=== PATIENT | female | born 1960 | race African-American/Black ===

== ENCOUNTER → 2016-05-25 | Outpatient (CLI) | payer MEDICARE, MEDICAID, OTHER ==
[~2016-05-25] MED LIST: AZIT500T2 PO; BENZ1TAB; DEPA500T3; PARO10TA2 PO; PNEU25IN IM; SIMV20TA PO; TRAZ100T50 PO; ZOLO25TA PO; [UNRECOGNIZED DRUG - SUPPLY]; [UNRECOGNIZED DRUG - SUPPLY]
[2016-05-25 11:59] LABS: AUTOMATED NEUTROPHIL # 3.4 TH/MM3 (1.8-7.7); BASOPHIL % 0.5 % (0.0-2.0); HEMATOCRIT 38.2 % (35.0-46.0); HEMO FLAGS DIFF FINAL; LYMPH % 26.6 % (9.0-44.0); LYMPHOCYTE # 1.4 TH/MM3 (1.0-4.8); MEAN CELL VOLUME 84.3 FL (80.0-100.0); MEAN CORPUSCULAR HEMOGLOBIN 27.6 PG (27.0-34.0); MEAN CORPUSCULAR HGB CONC 32.7 % (32.0-36.0); MONO % 8.1 % (0.0-8.0); NEUT % 64.8 % (16.0-70.0); PLATELET COUNT 140 TH/MM3 (150-450); RED BLOOD COUNT 4.53 MIL/MM3 (4.00-5.30); RED CELL DISTRIBUTION WIDTH 13.3 % (11.6-17.2); WHITE BLOOD COUNT 5.3 TH/MM3 (4.0-11.0)
[2016-05-25 12:27] LABS: ALKALINE PHOSPHATASE 119 U/L (45-117); ALT (GPT) 28 U/L (10-53); HDL CHOLESTEROL 107.2 MG/DL (40.0-60.0); LDL CHOLESTEROL 89 MG/DL (0-99); TOTAL BILIRUBIN ADULT 0.5 MG/DL (0.2-1.0)
[2016-05-25 12:28] LABS: ANION GAP 6 MEQ/L (5-15); AST (GOT) 31 U/L (15-37); BICARBONATE 26.8 MEQ/L (21.0-32.0); BLOOD UREA NITROGEN 12 MG/DL (7-18); CHLORIDE 106 MEQ/L (98-107); GLOMERULAR FILTRATION RATE 98 ML/MIN (>89); GLUCOSE,FASTING 88 MG/DL (74-99); SODIUM (NA) 139 MEQ/L (136-145)
[2016-05-25 12:29] LABS: POTASSIUM 4.2 MEQ/L (3.5-5.1)
== END ==
LOC: CLAB 11:37
PROVIDERS: ATTEND Family Medicine
DX: F20.9 Schizophrenia, unspecified (principal); F31.9 Bipolar disorder, unspecified; E78.5 Hyperlipidemia, unspecified; R94.5 Abnormal results of liver function studies; Z72.0 Tobacco use
CPT/HCPCS: 36415; 80053; 80061; 84443; 85025

== ENCOUNTER → 2016-09-29 | Outpatient (CLI) | payer MEDICARE, MEDICAID, OTHER ==
[~2016-09-29] MED LIST changes: -PNEU25IN IM
[2016-09-29 10:43] LABS: BASOPHIL % 0.4 % (0.0-2.0); EOSINOPHIL % 0.1 % (0.0-4.0); HEMO FLAGS DIFF FINAL; LYMPH % 35.4 % (9.0-44.0); LYMPHOCYTE # 1.3 TH/MM3 (1.0-4.8); MEAN CELL VOLUME 85.1 FL (80.0-100.0); MEAN CORPUSCULAR HGB CONC 32.9 % (32.0-36.0); MONO % 11.4 % (0.0-8.0); NEUT % 52.7 % (16.0-70.0); PLATELET COUNT 150 TH/MM3 (150-450); RED BLOOD COUNT 4.34 MIL/MM3 (4.00-5.30); RED CELL DISTRIBUTION WIDTH 13.8 % (11.6-17.2); WHITE BLOOD COUNT 3.8 TH/MM3 (4.0-11.0)
[2016-09-29 11:40] LABS: CHLORIDE 107 MEQ/L (98-107); GLUCOSE,FASTING 93 MG/DL (74-99); POTASSIUM 3.9 MEQ/L (3.5-5.1); SODIUM (NA) 141 MEQ/L (136-145)
[2016-09-29 12:22] LABS: ALT (GPT) 43 U/L (10-53); ANION GAP 8 MEQ/L (5-15); AST (GOT) 33 U/L (15-37); BICARBONATE 26.3 MEQ/L (21.0-32.0); BLOOD UREA NITROGEN 9 MG/DL (7-18)
[2016-09-29 12:24] LABS: ALKALINE PHOSPHATASE 129 U/L (45-117); HDL CHOLESTEROL 78.6 MG/DL (40.0-60.0); LDL CHOLESTEROL 97 MG/DL (0-99); TOTAL BILIRUBIN ADULT 0.4 MG/DL (0.2-1.0)
[2016-09-29 12:28] LABS: GLOMERULAR FILTRATION RATE 106 ML/MIN (>89)
== END ==
LOC: CLAB 10:17
PROVIDERS: ATTEND Family Medicine
DX: B19.10 Unspecified viral hepatitis B without hepatic coma (principal); R94.5 Abnormal results of liver function studies; F31.9 Bipolar disorder, unspecified; N95.1 Menopausal and female climacteric states; R74.0 Nonspecific elevation of levels of transaminase and lactic acid dehydrogenase [LDH]; E66.9 Obesity, unspecified
CPT/HCPCS: 36415; 80053; 80061; 80074; 85025

== ENCOUNTER → 2017-05-01 | Outpatient (CLI) | payer OTHER ==
[~2017-05-01] MED LIST changes: -AZIT500T2 PO; -BENZ1TAB; -ZOLO25TA PO; -[UNRECOGNIZED DRUG - SUPPLY]; -[UNRECOGNIZED DRUG - SUPPLY]
--- NOTE | 2017-05-07 11:22 | RSPPFT ---
DATE OF PROCEDURE: 05/01/17 COMMENTS: Spirometry with FVC of 2.8, FEV1 of 2.1, FEV1/FVC ratio at 76%. Slow vital capacity is 78% of predicted. TLC is 95%. Diffusion capacity is normal. Room air arterial blood gases show pH of 7.45, PCO2 of 34, PO2 of 92. IMPRESSION: 1. No evidence of airways obstruction. 2. No evidence of airways restriction. 3. Normal diffusion capacity. 4. Non-significant response to acutely inhaled bronchodilator. 5. Adequate oxygenation and alveolar ventilation.
== END ==
LOC: HRSP 12:28
PROVIDERS: ATTEND Internal Medicine Sleep Medicine
DX: R06.89 Other abnormalities of breathing (principal)
CPT/HCPCS: 36600; 82805; 94060; 94726; 94729

== ENCOUNTER 2017-09-06 01:14 | Observation (INO) | payer OTHER, MEDICAID ==
[2017-09-06] VITALS (12 sets, daily range): BP systolic 107–142; BP diastolic 58–86; PULSE 74–104; RESP 16–19; TEMP 98.1–99; O2SAT 94–99
[~2017-09-06] VITALS: Ht 175.3 cm; Wt 75.0 kg
[2017-09-06] MEDS ORDERED: IOHEXOL 350 MG/ML 10 ML VIAL (for RAD DIAG) IVCONTRAST ONE (01:15)
[2017-09-06] MEDS ORDERED: DIVA250ER PO (01:21)
[2017-09-06] MEDS ORDERED: TRAZ100T10 PO (01:21)
--- NOTE | 2017-09-06 01:26 | PD ---
HPI Chief Complaint: Fall Time Seen by Provider: 01:16 Travel History International Travel<30 days: No Contact w/Intl Traveler<30days: No Traveled to known affect area: No History of Present Illness HPI 57-year-old female brought in by ambulance from home for evaluation of fall, scalp laceration, syncopal episode. Patient reports that she was going into her kitchen, and the next thing she knew she was on the floor waking up. She is unsure how she fell to the floor. She has a large right parietal scalp laceration. She is complaining of head pain. She denies neck or back pain. No upper or lower extremity pain. No chest pain or dyspnea. No history of syncopal episodes. No known history of cardiac disease. PFSH Past Medical History Anemia: Yes Asthma: Yes Autoimmune Disease: No Bipolar Disorder: Yes Depression: Yes Cancer: No Cardiovascular Problems: No High Cholesterol: Yes Diminished Hearing: No Endocrine: No Gastrointestinal Disorders: No Genitourinary: No Musculoskeletal: No Neurologic: No Psychiatric: Yes Respiratory: Yes Schizophrenia: Yes : 6 Para: 4 Miscarriage: 2 Social History Alcohol Use: No (NONE X 2 MO) Tobacco Use: Yes (1/3 PPD . STATES SMOKES X 5 YEARS) Substance Use: Yes (NONE X 2 MONTHS, HX. OF COCAINE AND ALCOHOL IS IN [facility] INPATIENT) Allergies-Medications (Allergen,Severity, Reaction): Coded Allergies: No Known Allergies (Verified Adverse Reaction, Unknown, 09/06/17) Reported Meds & Prescriptions Reported Meds & Active Scripts Active Paroxetine (Paroxetine HCl) 10 Mg Tab 10 Mg PO DAILY Simvastatin 20 Mg Tab 20 Mg PO DAILY Reported Depakote ER (Divalproex Sodium) 250 Mg Анна 250 Mg PO DAILY Trazodone (Trazodone HCl) 100 Mg Tablet 100 Mg PO HS Review of Systems Except as stated in HPI: all other systems reviewed are Neg Physical Exam Narrative GENERAL: Well-developed, well-nourished, awake, alert, GCS 15, no acute distress. SKIN: Focused skin assessment warm/dry. Large/L-shaped laceration to the right parietal scalp of moderate depth, no active bleeding, approximately 10 cm in total length, galea intact. HEAD: Skin exam as above. Normocephalic. EYES: Pupils equal, round, 3 mm, reactive to light. EOMI. No scleral icterus. No injection or drainage. ENT: No nasal bleeding or discharge. Mucous membranes pink and moist. NECK: Trachea midline. No JVD. Rigid cervical collar in place. No midline cervical spine step-off or tenderness. CARDIOVASCULAR: Regular rate and rhythm. RESPIRATORY: No accessory muscle use. Clear to auscultation. Breath sounds equal bilaterally. GASTROINTESTINAL: Abdomen soft, non-tender, nondistended. Hepatic and splenic margins not palpable. MUSCULOSKELETAL: No obvious deformities. No clubbing. No cyanosis. No edema. No midline thoracic or lumbar spine step-off or tenderness. NEUROLOGICAL: Awake and alert. No obvious cranial nerve deficits. Motor grossly within normal limits. Normal speech. PSYCHIATRIC: Appropriate mood and affect; insight and judgment normal. Data Data Last Documented VS Vital Signs Date Time Temp Pulse Resp B/P (MAP) Pulse Ox O2 Delivery O2 Flow Rate FiO2 09/06/17 02:53 92 19 142/86 (104) 98 137/83 (101) 09/06/17 01:24 Room Air 09/06/17 01:22 98.1 Orders Orders Electrocardiogram (09/06/17:19) Ckmb (Isoenzyme) Profile (09/06/17 01:19) Complete Blood Count With Diff (09/06/17:19) Comprehensive Metabolic Panel (09/06/17:19) Prothrombin Time / Inr (Pt) (09/06/17:19) Act Partial Throm Time (Ptt) (09/06/17:19) Troponin I (09/06/17:19) Chest, Single Ap (09/06/17:19) Ecg Monitoring (09/06/17:19) Bilateral Bp Monitoring (09/06/17:19) Iv Access Insert/Monitor (09/06/17:19) Oximetry (09/06/17:19) Oxygen Administration (09/06/17:19) Sodium Chloride 0.9% Flush (Ns Flush) (09/06/17 01:30) Ct Brain W/O Iv Contrast(Rout) (09/06/17 ) Ct Cerv Spine W/O Contrast (09/06/17 ) Cefazolin 2 Gm Premix (Ancef 2 Gm Premix (09/06/17 01:30) Urinalysis - C+S If Indicated (09/06/17 01:19) Tetanus/Diphtheria Tox Adult (Tetanus/Di (09/06/17 01:30) Valproic Acid (Depakene) (09/06/17 01:29) CKMB (09/06/17 01:29) CKMB% (09/06/17 01:29) Morphine Inj (Morphine Inj) (09/06/17 02:30) Potassium Chloride (Kcl) (09/06/17 02:30) Ct Pulmonary Angiogram (09/06/17 ) Iohexol 350 Inj (Omnipaque 350 Inj) (09/06/17 01:15) Levofloxacin (Levaquin) (09/06/17 04:15) Blood Culture (09/06/17 04:03) Labs Laboratory Tests Test 09/06/17 01:29 09/06/17 02:40 Blood Urea Nitrogen 10 MG/DL Creatinine 0.77 MG/DL Random Glucose 121 MG/DL Total Protein 8.1 GM/DL Albumin 3.7 GM/DL Calcium Level 9.1 MG/DL Alkaline Phosphatase 140 U/L Aspartate Amino Transf (AST/SGOT) 74 U/L Alanine Aminotransferase (ALT/SGPT) 67 U/L Total Bilirubin 0.5 MG/DL Sodium Level 139 MEQ/L Potassium Level 3.3 MEQ/L Chloride Level 100 MEQ/L Carbon Dioxide Level 23.3 MEQ/L Anion Gap 16 MEQ/L Estimat Glomerular Filtration Rate 93 ML/MIN Total Creatine Kinase 266 U/L Creatine Kinase MB 2.6 NG/ML Creatine Kinase MB % 1.0 % Troponin I LESS THAN 0.02 NG/ML Valproic Acid (Depakene) Level 4 MCG/ML White Blood Count 4.5 TH/MM3 Red Blood Count 4.22 MIL/MM3 Hemoglobin 11.9 GM/DL Hematocrit 35.7 % Mean Corpuscular Volume 84.8 FL Mean Corpuscular Hemoglobin 28.1 PG Mean Corpuscular Hemoglobin Concent 33.2 % Red Cell Distribution Width 13.3 % Platelet Count 132 TH/MM3 Mean Platelet Volume 9.9 FL Neutrophils (%) (Auto) 58.0 % Lymphocytes (%) (Auto) 30.5 % Monocytes (%) (Auto) 10.8 % Eosinophils (%) (Auto) 0.2 % Basophils (%) (Auto) 0.5 % Neutrophils # (Auto) 2.6 TH/MM3 Lymphocytes # (Auto) 1.4 TH/MM3 Monocytes # (Auto) 0.5 TH/MM3 Eosinophils # (Auto) 0.0 TH/MM3 Basophils # (Auto) 0.0 TH/MM3 CBC Comment DIFF FINAL Differential Comment Prothrombin Time 10.7 SEC Prothromb Time International Ratio 1.1 RATIO Activated Partial Thromboplast Time 22.6 SEC MDM Medical Decision Making Medical Screen Exam Complete: Yes Emergency Medical Condition: Yes Interpretation(s) EKG: Sinus, rate 91, normal axis, normal intervals, T-wave inversions in V1 through V3 Differential Diagnosis Syncope, intracranial trauma, cervical spine injury, metabolic abnormality, Narrative Course Vital signs reviewed. CBC: WBC 4.5, hemoglobin 11.9, hematocrit 35.7, platelets 132. CMP is remarkable for potassium 3.3 which was replaced orally, AST 74, ALT 67, Cardiac enzymes are negative. Depakote level is 4. Scalp wound was copiously irrigated and repaired with gina. Patient was given 2 g of Ancef IV. Chest x-ray: Possible mild hazy parenchymal infiltrate right lung base. CT cervical spine: Facet arthrosis C3-4 on the left side otherwise unremarkable. CT head: Unremarkable study. CT pulm angiogram: CONCLUSION: 1. Lung nodules have not changed since 2017 most likely benign and there is slight left lung base infiltrate. 2. No evidence for pulmonary embolus. Patient was made aware of all findings. I will start her on Levaquin for this left base infiltrate seen on CT pulmonary angiogram. Patient denies cough or fevers. She did have a syncopal episode and sustained a pretty large scalp laceration. She has T-wave inversions on her EKG on V1 through V3. No prior comparison. Given EKG findings with history of syncope, she will be admitted for telemetry monitoring and further evaluation. Patient was made aware of all findings and plan for admission. The patient's primary care physician Dr. Vazquez Ramos was contacted and would like the patient to be admitted to the [facility] service. Case discussed with hospitalist Dr. Hayes who will admit the patient to the hospitalist service. Procedures Procedure Narrative LACERATION LOCATION: Right parietal scalp LENGTH: 8 cm NUMBER OF STITCHES/GINA: 11 gina REPAIR: The area of the laceration was prepped with Betadine and sterilely draped. The wound was copiously irrigated and explored without evidence of foreign body, tendon injury or neurovascular injury. The wound was closed using 11 gina. This was a single layer repair. A sterile dressing was applied. The patient was advised to keep the dressing clean and dry. Patient tolerated the procedure well. Diagnosis Primary Impression: Syncope Qualified Codes: R55 - Syncope and collapse Additional Impressions: Head injury Qualified Codes: S09.90XA - Unspecified injury of head, initial encounter Scalp laceration Qualified Codes: S01.01XA - Laceration without foreign body of scalp, initial encounter Pneumonia Qualified Codes: J18.1 - Lobar pneumonia, unspecified organism Admitting Information Admitting Physician Requests: Betito Bains MD September 06, 2017 01:26
[2017-09-06] MEDS ORDERED: TETANUS/DIPHTHERIA TOXOID ADULT 0.5 ML VIAL IM ONE (01:30)
[2017-09-06] MEDS ORDERED: SODIUM CHLORIDE 0.9% FLUSH 10 ML FLUSH IVF PRN (01:30)
[2017-09-06] MEDS ORDERED: ceFAZolin 2 GM PREMIX 50 ML IV ONE (01:30)
--- NOTE | 2017-09-06 02:06 | RADRPT ---
EXAM DATE: 09/06/2017 2:02 AM EDT AGE/SEX: 57 years / Female INDICATIONS: Short of breath. CLINICAL DATA: This is the patient's initial encounter. Patient reports that signs and symptoms have been present for 1 day and indicates a pain score of 0/10. MEDICAL/SURGICAL HISTORY: None. None. COMPARISON: No prior exams available for comparison. FINDINGS: Possible slight hazy parenchymal process right lung base. Heart and mediastinum are unremarkable for technique. CONCLUSION: Possible mild hazy parenchymal infiltrate right lung base. Electronically signed by: Jazmyn Burnham MD 09/06/2017 2:05 AM EDT
[2017-09-06 02:12] LABS: ALBUMIN 3.7 GM/DL (3.4-5.0); ALT (GPT) 67 U/L (10-53); AST (GOT) 74 U/L (15-37); BICARBONATE 23.3 MEQ/L (21.0-32.0); BLOOD UREA NITROGEN 10 MG/DL (7-18); CALCIUM 9.1 MG/DL (8.5-10.1); CHLORIDE 100 MEQ/L (98-107); CREATININE 0.77 MG/DL (0.50-1.00); GLOMERULAR FILTRATION RATE 93 ML/MIN (>89); GLUCOSE,RANDOM 121 MG/DL (74-106); SODIUM (NA) 139 MEQ/L (136-145)
[2017-09-06 02:16] LABS: ALKALINE PHOSPHATASE 140 U/L (45-117); TOTAL BILIRUBIN ADULT 0.5 MG/DL (0.2-1.0); TOTAL PROTEIN 8.1 GM/DL (6.4-8.2); TROPONIN I LESS THAN 0.02 NG/ML (0.02-0.05)
[2017-09-06] MEDS ORDERED: MORPHINE SULFATE 4 MG/ML INJ IV PUSH ONE (02:30)
[2017-09-06] MEDS ORDERED: POTASSIUM CHLORIDE 20 MEQ CONTROLLED RELEASE TAB PO ONE (02:30)
[2017-09-06 03:00] LABS: AUTOMATED NEUTROPHIL # 2.6 TH/MM3 (1.8-7.7); BASOPHIL % 0.5 % (0.0-2.0); EOSINOPHIL % 0.2 % (0.0-4.0); HEMATOCRIT 35.7 % (35.0-46.0); HEMOGLOBIN 11.9 GM/DL (11.6-15.3); LYMPH % 30.5 % (9.0-44.0); LYMPHOCYTE # 1.4 TH/MM3 (1.0-4.8); MEAN CELL VOLUME 84.8 FL (80.0-100.0); MEAN CORPUSCULAR HEMOGLOBIN 28.1 PG (27.0-34.0); MEAN CORPUSCULAR HGB CONC 33.2 % (32.0-36.0); MEAN PLATELET VOLUME 9.9 FL (7.0-11.0); MONO % 10.8 % (0.0-8.0); MONOCYTE # 0.5 TH/MM3 (0-0.9); PLATELET COUNT 132 TH/MM3 (150-450); RED BLOOD COUNT 4.22 MIL/MM3 (4.00-5.30); RED CELL DISTRIBUTION WIDTH 13.3 % (11.6-17.2); WHITE BLOOD COUNT 4.5 TH/MM3 (4.0-11.0)
--- NOTE | 2017-09-06 03:01 | RADRPT ---
EXAM DATE: 09/06/2017 2:33 AM EDT AGE/SEX: 57 years / Female INDICATIONS: Trauma, fall. CLINICAL DATA: This is the patient's initial encounter. Patient reports that signs and symptoms have been present for 1 day and indicates a pain score of 0/10. MEDICAL/SURGICAL HISTORY: None. None. RADIATION DOSE: 20.11 CTDI (mGy) COMPARISON: No prior exams available for comparison. TECHNIQUE: Contiguous axial images were obtained using helical multirow detector technique. The vol umetric data was post-processed with multiplanar reconstruction in oblique axial, sagittal, and coron al planes. Using automated exposure control and adjustment of the mA and/or kV according to patient s ize, radiation dose was kept as low as reasonably achievable to obtain optimal diagnostic quality turner ges. FINDINGS: No significant subluxation or soft tissue swelling is seen. No definite fracture is identified for t echnique. C2-C3: No appreciable compromise to the thecal sac, exiting nerve roots are seen. The neural foramin a are patent bilaterally. No appreciable thecal sac stenosis is seen. C3-C4: No appreciable compromise to the thecal sac, exiting nerve roots are seen. The neural foramin a are patent bilaterally. No appreciable thecal sac stenosis is seen. There is significant facet arth rosis on the left side. C4-C5: No appreciable compromise to the thecal sac, exiting nerve roots are seen. The neural foramin a are patent bilaterally. No appreciable thecal sac stenosis is seen. C5-C6: No appreciable compromise to the thecal sac, exiting nerve roots are seen. The neural foramin a are patent bilaterally. No appreciable thecal sac stenosis is seen. C6-C7: No appreciable compromise to the thecal sac, exiting nerve roots are seen. The neural foramin a are patent bilaterally. No appreciable thecal sac stenosis is seen. C7-T1: No appreciable compromise to the thecal sac, exiting nerve roots are seen. The neural foramin a are patent bilaterally. No appreciable thecal sac stenosis is seen. CONCLUSION: Facet arthrosis C3-4 on the left side and otherwise unremarkable. Electronically signed by: Jazmyn Burnham MD 09/06/2017 2:59 AM EDT
--- NOTE | 2017-09-06 03:02 | RADRPT ---
EXAM DATE: 09/06/2017 2:29 AM EDT AGE/SEX: 57 years / Female INDICATIONS: Trauma, fall. Laceration to posterior head. CLINICAL DATA: This is the patient's initial encounter. Patient reports that signs and symptoms have been present for 1 day and indicates a pain score of 10/10. MEDICAL/SURGICAL HISTORY: None. None. RADIATION DOSE: 66.34 CTDI (mGy) COMPARISON: No prior exams available for comparison. TECHNIQUE: CT of the head without contrast. Using automated exposure control and adjustment of the mA and/or kV according to patient size, radiation dose was kept as low as reasonably achievable to ob tain optimal diagnostic quality images. FINDINGS: There is no evidence for intracranial hemorrhage, mass effect, mass lesions, edema, or extr a-axial fluid collections. The visualized bony structures appear intact. The ventricles are normal size for the patient's age. There are no signs of acute infarction for technique. CONCLUSION: Unremarkable study. Electronically signed by: Jazmyn Burnham MD 09/06/2017 3:01 AM EDT
[2017-09-06 03:14] LABS: INTERNATIONAL NORMALIZED RATIO 1.1 RATIO; PROTHROMBIN TIME - PATIENT 10.7 SEC (9.8-11.6)
--- NOTE | 2017-09-06 03:58 | RADRPT ---
EXAM DATE: 09/06/2017 3:36 AM EDT AGE/SEX: 57 years / Female INDICATIONS: Syncope CLINICAL DATA: This is the patient's initial encounter. Patient reports that signs and symptoms have been present for 1 day and indicates a pain score of 0/10. MEDICAL/SURGICAL HISTORY: Asthma. . RADIATION DOSE: 10.18 CTDI (mGy) COMPARISON: No prior exams available for comparison. TECHNIQUE: Volumetric scanning was performed using a multi-row detector CT scanner during bolus infu shaina of 73 ml Omnipaque 350 (iohexol) nonionic water-soluble contrast as a cumulative dose for multi ple exams. The data was post processed with a variety of visualization algorithms including full volu me maximum intensity projection and sliding thin slab reformation. Using automated exposure control and adjustment of the mA and/or kV according to patient size, radiation dose was kept as low as reaso nably achievable to obtain optimal diagnostic quality images. FINDINGS: Approximate 8 mm groundglass nodule left upper lobe with slight left lung base atelectasis and/or infiltrate. There is also a small 4 mm nodule right lower lobe anterolateral with a separate 4 mm right lower lobe nodule posteriorly. These nodules were present on the prior CT examinations jaime g back to 2017 not significantly changed most likely benign. There is no pleural effusion. No apprec iable pathological adenopathy is seen within the mediastinum. Approximate 2.4 cm cyst is present with in the liver. There is no evidence of PE for technique. CONCLUSION: 1. Lung nodules have not changed since 2017 most likely benign and there is slight left lung base in filtrate. 2. No evidence for pulmonary embolus. Electronically signed by: Jazmyn Burnham MD 09/06/2017 3:56 AM EDT
[2017-09-06] MEDS ORDERED: LEVOFLOXACIN 500 MG TAB PO ONE (04:15)
[2017-09-06] MEDS ORDERED: SODIUM CHLORIDE 0.9% FLUSH 10 ML FLUSH IV FLUSH PRN (04:45)
[2017-09-06] MEDS ORDERED: PILL SPLITTER OTHER PRN (05:00)
[2017-09-06] MEDS: PRAVASTATIN SOD 40 MG TAB PO SCH (09:52)
[2017-09-06] MEDS: PARoxetine HCL 20 MG TAB PO SCH (09:52)
[2017-09-06] MEDS: SODIUM CHLORIDE 0.9% FLUSH 10 ML FLUSH IV FLUSH SCH ×2 (09:53→21:08)
[2017-09-06] MEDS: DIVALPROEX SODIUM E.R. 250 MG TAB PO SCH (09:53)
--- NOTE | 2017-09-06 11:11 | HHI.HP ---
cc: Vazquez Ramos MD [facility] Primary [facility] Physician Vazquez Ramos MD Admission Diagnosis Syncope, scalp laceration, pneumonia Diagnoses: (1) Syncope (2) Head injury (3) Pneumonia (4) Scalp laceration (5) Chronic schizophrenia (6) Bipolar disorder (7) Dyslipidemia Chief Complaint: Fall, syncope Travel History International Travel<30 Days: No Contact w/Intl Traveler <30 Da: No Traveled to Known Affected Are: No History of Present Illness The patient is a 57-year-old female who presented to the emergency department following a syncopal episode and fall. She sustained a laceration to her scalp , which was repaired with gina in the ER. She does not recall any symptoms prior to the fall. Does not remember having any lightheadedness or dizziness. Currently her only complaint is pain at the laceration site. No vision changes. No chest pain or dyspnea. No nausea or vomiting. She states that she did have 2 beers yesterday, but that is normal for her and she does not feel that it had any effect on her falling. Review of Systems Constitutional: DENIES: Fever, Chills, Night Sweats Eyes: DENIES: Blurred vision, Vision loss Ears, nose, mouth, throat: DENIES: Hearing loss Respiratory: DENIES: Cough, Wheezing, Sputum production, Shortness of breath Cardiovascular: COMPLAINS OF: Syncope, DENIES: Chest pain, Palpitations, Dyspnea on Exertion, Lower Extremity Edema Gastrointestinal: DENIES: Abdominal pain, Constipation, Diarrhea, Nausea, Vomiting Genitourinary: DENIES: Urinary frequency, Urinary incontinence, Urgency, Hematuria, Dysuria, Nocturia Musculoskeletal: DENIES: Joint pain, Muscle aches Integumentary: DENIES: Pruritus, Rash Hematologic/lymphatic: DENIES: Bruising Neurologic: DENIES: Headache Past Family Social History Past Medical History Asthma Bipolar disorder Depression Hyperlipidemia Schizophrenia Past Surgical History Denies Reported Medications Paroxetine (Paroxetine HCl) 10 Mg Tab 10 Mg PO DAILY Simvastatin 20 Mg Tab 20 Mg PO DAILY Depakote ER (Divalproex Sodium) 250 Mg Анна 250 Mg PO DAILY Trazodone (Trazodone HCl) 100 Mg Tablet 100 Mg PO HS Allergies: Coded Allergies: No Known Allergies (Verified Allergy, Unknown, 09/06/17) Family History Hypertension Social History She smokes 4-5 cigarettes per day. Reports drinking 2 beers per day. Denies illicit drug use. Physical Exam Vital Signs Vital Signs Date Time Temp Pulse Resp B/P (MAP) Pulse Ox O2 Delivery O2 Flow Rate FiO2 09/06/17 07:59 99.0 91 18 108/61 (77) 98 09/06/17 05:35 104 16 107/58 (74) 94 Room Air 09/06/17 02:53 92 19 142/86 (104) 98 137/83 (101) 09/06/17 01:24 98 Room Air 09/06/17 01:24 98 Room Air 09/06/17 01:22 98.1 92 18 127/68 (87) 98 Physical Exam GENERAL: Well-nourished, well-developed female in no acute distress. HEENT: Scalp laceration repaired. Pupils equal, round and reactive. Extraocular movements intact. No scleral icterus. No injection or drainage. Oropharynx is clear. Mucous membranes are moist. CARDIOVASCULAR: Regular rate and rhythm without murmurs, gallops, or rubs. RESPIRATORY: Clear to auscultation. No wheezes, rales, or rhonchi. Breathing is non-labored. GASTROINTESTINAL: Abdomen soft, non-tender, nondistended. EXTREMITIES: No lower extremity edema. No calf tenderness. PSYCH: Alert and oriented x 3. Laboratory Laboratory Tests Test 09/06/17 01:29 09/06/17 02:40 Blood Urea Nitrogen 10 Creatinine 0.77 Random Glucose 121 Total Protein 8.1 Albumin 3.7 Calcium Level 9.1 Alkaline Phosphatase 140 Aspartate Amino Transf (AST/SGOT) 74 Alanine Aminotransferase (ALT/SGPT) 67 Total Bilirubin 0.5 Sodium Level 139 Potassium Level 3.3 Chloride Level 100 Carbon Dioxide Level 23.3 Anion Gap 16 Estimat Glomerular Filtration Rate 93 Total Creatine Kinase 266 Creatine Kinase MB 2.6 Creatine Kinase MB % 1.0 Troponin I LESS THAN 0.02 Valproic Acid (Depakene) Level 4 Ethyl Alcohol Level 92 White Blood Count 4.5 Red Blood Count 4.22 Hemoglobin 11.9 Hematocrit 35.7 Mean Corpuscular Volume 84.8 Mean Corpuscular Hemoglobin 28.1 Mean Corpuscular Hemoglobin Concent 33.2 Red Cell Distribution Width 13.3 Platelet Count 132 Mean Platelet Volume 9.9 Neutrophils (%) (Auto) 58.0 Lymphocytes (%) (Auto) 30.5 Monocytes (%) (Auto) 10.8 Eosinophils (%) (Auto) 0.2 Basophils (%) (Auto) 0.5 Neutrophils # (Auto) 2.6 Lymphocytes # (Auto) 1.4 Monocytes # (Auto) 0.5 Eosinophils # (Auto) 0.0 Basophils # (Auto) 0.0 CBC Comment DIFF FINAL Differential Comment Prothrombin Time 10.7 Prothromb Time International Ratio 1.1 Activated Partial Thromboplast Time 22.6 Result Diagram: 09/06/17 0240 09/06/17 0129 Imaging Last Impressions Chest X-Ray 09/06/17 0119 Signed Impressions: CONCLUSION: Possible mild hazy parenchymal infiltrate right lung base. Head CT 09/06/17 0000 Signed Impressions: CONCLUSION: Unremarkable study. Cervical Spine CT 09/06/17 0000 Signed Impressions: CONCLUSION: Facet arthrosis C3-4 on the left side and otherwise unremarkable. CT Angiography 09/06/17 0000 Signed Impressions: CONCLUSION: 1. Lung nodules have not changed since 2017 most likely benign and there is sl ight left lung base infiltrate. 2. No evidence for pulmonary embolus. Caprini VTE Risk Assessment Caprini VTE Risk Assessment: Mod/High Risk (score >= 2) Caprini Risk Assessment Model Point Value = 1 Point Value = 2 Point Value = 3 Point Value = 5 Age 41-60 Minor surgery BMI > 25 kg/m2 Swollen legs Varicose veins or History of unexplained or recurrent spontaneous Oral contraceptives or hormone replacement Sepsis (< 1 month) Serious lung disease, including pneumonia (< 1 month) Abnormal pulmonary function Acute myocardial infarction Congestive heart failure (< 1 month) History of inflammatory bowel disease Medical patient at bed rest Age 61-74 Arthroscopic surgery Major open surgery (> 45 min) Laparoscopic surgery (> 45 min) Malignancy Confined to bed (> 72 hours) Immobilizing plaster cast Central venous access Age >= 75 History of VTE Family history of VTE Factor V Leiden Prothrombin [id number] Lupus anticoagulant Anticardiolipin antibodies Elevated serum homocysteine Heparin-induced thrombocytopenia Other congenital or acquired thrombophilia Stroke (< 1 month) Elective arthroplasty Hip, pelvis, or leg fracture Acute spinal cord injury (< 1 month) Prophylaxis Regimen Total Risk Factor Score Risk Level Prophylaxis Regimen 0-1 Low Early ambulation 2 Moderate Order ONE of the following: *Sequential Compression Device (SCD) *Heparin 5000 units SQ BID 3-4 Higher Order ONE of the following medications: *Heparin 5000 units SQ TID *Enoxaparin/Lovenox 40 mg SQ daily (WT < 150 kg, CrCl > 30 mL/min) *Enoxaparin/Lovenox 30 mg SQ daily (WT < 150 kg, CrCl > 10-29 mL/min) *Enoxaparin/Lovenox 30 mg SQ BID (WT < 150 kg, CrCl > 30 mL/min) AND/OR *Sequential Compression Device (SCD) 5 or more Highest Order ONE of the following medications: *Heparin 5000 units SQ TID (Preferred with Epidurals) *Enoxaparin/Lovenox 40 mg SQ daily (WT < 150 kg, CrCl > 30 mL/min) *Enoxaparin/Lovenox 30 mg SQ daily (WT < 150 kg, CrCl > 10-29 mL/min) *Enoxaparin/Lovenox 30 mg SQ BID (WT < 150 kg, CrCl > 30 mL/min) AND *Sequential Compression Device (SCD) Assessment and Plan Assessment and Plan 1. Syncope, fall: Uncertain etiology. Monitor on cardiac telemetry. 2D echocardiogram ordered. 2. Pneumonia: Continue antibiotics. Oxygen as needed. 3. Hyperlipidemia: Continue statin. 4. Schizophrenia, bipolar disorder, depression: Continue home medications including Paxil, Depakote, trazodone. 5. Hypokalemia: Received oral potassium in the ER. Monitor labs. 6. DVT prophylaxis: SCDs, JAKE hose. Problem Qualifiers (1) Syncope: Qualified Codes: R55 - Syncope and collapse (2) Head injury: Qualified Codes: S09.90XA - Unspecified injury of head, initial encounter (3) Pneumonia: Qualified Codes: J18.1 - Lobar pneumonia, unspecified organism (4) Scalp laceration: Qualified Codes: S01.01XA - Laceration without foreign body of scalp, initial encounter Walter Ervin MD September 06, 2017 11:11
--- NOTE | 2017-09-06 14:55 | EKG ---
Date Performed: 09/06/2017 Time Performed: 01:28:10 PTAGE: 57 years EKG: Sinus rhythm NONSPECIFIC T-WAVE ABNORMALITY Consider anteroseptal ischemia BORDERLINE ECG PREVIOUS TRACING : 05/02/2004 16.34 DOCTOR: Patrick Starks Interpretating Date/Time 09/06/2017 14:54:08
[2017-09-06] MEDS ORDERED: ACETAMINOPHEN/HYDROcodone 325 MG/7.5 MG TAB PO PRN (15:00)
[2017-09-06] MEDS ORDERED: ACETAMINOPHEN 500 MG CPLT PO PRN (15:00)
[2017-09-06] MEDS: ACETAMINOPHEN/HYDROcodone 325 MG/5 MG TAB PO PRN ×2 (15:58→22:16)
[2017-09-06] MEDS ORDERED: traZODone HCL 100 MG TAB PO SCH (21:00)
[2017-09-07] VITALS (8 sets, daily range): BP systolic 105–165; BP diastolic 69–93; PULSE 68–85; RESP 16–18; TEMP 98–98.8; O2SAT 98–100
[2017-09-07] MEDS ORDERED: LEVOFLOXACIN 750 MG PREMIX INJ 150 ML IV SCH (05:00)
[2017-09-07 05:41] LABS: AUTOMATED NEUTROPHIL # 2.6 TH/MM3 (1.8-7.7); BASOPHIL % 0.8 % (0.0-2.0); EOSINOPHIL % 0.3 % (0.0-4.0); HEMATOCRIT 35.9 % (35.0-46.0); HEMOGLOBIN 11.8 GM/DL (11.6-15.3); LYMPHOCYTE # 1.8 TH/MM3 (1.0-4.8); MEAN CELL VOLUME 85.8 FL (80.0-100.0); MEAN CORPUSCULAR HEMOGLOBIN 28.2 PG (27.0-34.0); MEAN CORPUSCULAR HGB CONC 32.9 % (32.0-36.0); MEAN PLATELET VOLUME 10.2 FL (7.0-11.0); MONO % 9.2 % (0.0-8.0); MONOCYTE # 0.4 TH/MM3 (0-0.9); NEUT % 52.7 % (16.0-70.0); PLATELET COUNT 114 TH/MM3 (150-450); RED BLOOD COUNT 4.18 MIL/MM3 (4.00-5.30); RED CELL DISTRIBUTION WIDTH 13.4 % (11.6-17.2); WHITE BLOOD COUNT 4.9 TH/MM3 (4.0-11.0)
[2017-09-07 06:11] LABS: ALT (GPT) 55 U/L (10-53)
[2017-09-07 06:13] LABS: ALKALINE PHOSPHATASE 130 U/L (45-117); TOTAL BILIRUBIN ADULT 0.7 MG/DL (0.2-1.0); TOTAL PROTEIN 7.8 GM/DL (6.4-8.2)
[2017-09-07 06:27] LABS: ALBUMIN 3.5 GM/DL (3.4-5.0); AST (GOT) 50 U/L (15-37); BICARBONATE 24.3 MEQ/L (21.0-32.0); BLOOD UREA NITROGEN 5 MG/DL (7-18); CHLORIDE 104 MEQ/L (98-107); CREATININE 0.67 MG/DL (0.50-1.00); GLOMERULAR FILTRATION RATE 109 ML/MIN (>89); GLUCOSE,RANDOM 106 MG/DL (74-106); SODIUM (NA) 139 MEQ/L (136-145)
[2017-09-07] MEDS: DIVALPROEX SODIUM E.R. 250 MG TAB PO SCH (08:27)
[2017-09-07] MEDS: SODIUM CHLORIDE 0.9% FLUSH 10 ML FLUSH IV FLUSH SCH (08:27)
[2017-09-07] MEDS: PARoxetine HCL 20 MG TAB PO SCH (08:27)
[2017-09-07] MEDS: PRAVASTATIN SOD 40 MG TAB PO SCH (08:27)
[2017-09-07] MEDS ORDERED: LEVO750T3 PO (09:51)
[2017-09-07] MEDS ORDERED: LACTCHW3 CHEW (09:51)
--- NOTE | 2017-09-07 09:52 | HHI.DCPOC ---
Discharge Care Plan Diagnosis: (1) Syncope (2) Head injury (3) Scalp laceration (4) Pneumonia Goals to Promote Your Health * To prevent worsening of your condition and complications * To maintain your health at the optimal level Directions to Meet Your Goals Take your medications as prescribed Follow your dietary instruction Follow activity as directed Keep your appointments as scheduled Take your immunizations and boosters as scheduled If your symptoms worsen call your PCP, if no PCP go to Urgent Care Center or Emergency Room Smoking is Dangerous to Your Health. Avoid second hand smoke Call the 24-hour hour crisis hotline for domestic abuse at Kaitlynn Yoder PA-C Sep 07, 2017 9:52 am
--- NOTE | 2017-09-07 10:52 | HHI.PR ---
Subjective Remarks Follow up for syncope. The patient reports feeling better today. She complains of some right parietal scalp pain at site of laceration. Denies any specific headache. Denies lightheadedness, dizziness, chest pain, palpitations, shortness of breath, or abdominal complaints. She is ambulating without difficulty. Discussed her low depakote level, patient reports compliance with depakote, discussed patient to recheck home meds and make sure nothing is , repeat level in 1 week, and f/up with PCP Dr. Ramos. Patient verbalized understanding. Objective Vitals Vital Signs Date Time Temp Pulse Resp B/P (MAP) Pulse Ox O2 Delivery O2 Flow Rate FiO2 09/07/17 08:19 98.0 81 18 122/71 (88) 100 09/07/17 08:01 79 09/07/17 04:13 98.1 85 16 105/70 (82) 98 09/07/17 04:08 79 09/07/17 00:43 16 09/07/17 00:24 98.7 74 16 123/69 (87) 98 09/07/17 00:02 84 09/06/17 20:09 74 09/06/17 19:49 98.9 74 16 121/74 (90) 99 09/06/17 16:32 88 09/06/17 16:30 98.4 86 115/66 (82) 99 09/06/17 13:21 84 09/06/17 12:25 99.0 87 18 117/72 (87) 97 I/O 09/06/17 09/06/17 09/06/17 09/07/17 09/07/17 09/07/17 07:00 15:00 23:00 07:00 15:00 23:00 Intake Total 50 ml 240 ml Balance 50 ml 240 ml Intake Oral 240 ml IV Total 50 ml # Voids 1 Result Diagram: 09/07/1752609/07/17526 Imaging Last Impressions Chest X-Ray 09/06/17 011 Signed Impressions: CONCLUSION: Possible mild hazy parenchymal infiltrate right lung base. Head CT 09/06/17 0000 Signed Impressions: CONCLUSION: Unremarkable study. Cervical Spine CT 09/06/17 0000 Signed Impressions: CONCLUSION: Facet arthrosis C3-4 on the left side and otherwise unremarkable. CT Angiography 09/06/17 0000 Signed Impressions: CONCLUSION: 1. Lung nodules have not changed since 2017 most likely benign and there is sl ight left lung base infiltrate. 2. No evidence for pulmonary embolus. Objective Remarks GENERAL: Well-nourished, well-developed pleasant middle aged female patient in [facility]. SKIN: Warm and dry. No rash. HEENT: Normocephalic. Right parietal scalp with laceration s/p repair with gina; no active bleeding. Pupils equal and round. Mucous membranes pink and moist. NECK: Supple. Trachea midline. Nontender. CARDIOVASCULAR: Regular rate and rhythm. No murmur appreciated. RESPIRATORY: No accessory muscle use. Clear to auscultation. Breath sounds equal bilaterally. GASTROINTESTINAL: Abdomen soft, non-tender, nondistended. Normoactive bowel sounds x4. MUSCULOSKELETAL: No obvious deformities. Extremities without clubbing, cyanosis , or edema. NEUROLOGICAL: Awake and alert. No obvious cranial nerve deficits. Motor grossly within normal limits. Moving all extremities spontaneously. Normal speech. PSYCHIATRIC: Appropriate mood and affect; insight and judgment normal. Medications and IVs Current Medications Medications (Trade) Dose Ordered Sig/Michel Route Start Time Stop Time Status Last Admin (NS Flush) 2 ml UNSCH PRN IV FLUSH 09/06/17 04:45 (NS Flush) 2 ml BID IV FLUSH 09/06/17 09:00 09/07/17 08:27 Levofloxacin/ Dextrose 150 ml @ 100 mls/hr Q24H IV 09/07/17 05:00 09/07/17 04:18 (Depakote Er) 250 mg DAILY PO 09/06/17 09:00 09/07/17 08:27 (Paxil) 10 mg DAILY PO 09/06/17 09:00 09/07/17 08:27 (Pravachol) 40 mg DAILY PO 09/06/17 09:00 09/07/17 08:27 (Pill Splitter) 1 ea UNSCH PRN OTHER 09/06/17 05:00 (Desyrel) 100 mg HS PO 09/06/17 21:00 09/06/17 21:08 (Tylenol) 500 mg Q6H PRN PO 09/06/17 15:00 ([place] 5-325 Mg) 1 tab Q6H PRN PO 09/06/17 15:00 09/06/17 22:16 ([place] 7.5-325 Mg) 1 tab Q6H PRN PO 09/06/17 15:00 09/07/17 10:34 A/P Problem List: (1) Syncope ICD Code: R55 - Syncope and collapse Status: Acute (2) Head injury ICD Code: S09.90XA - Unspecified injury of head, initial encounter Status: Acute (3) Pneumonia ICD Code: J18.9 - Pneumonia, unspecified organism Status: Acute (4) Scalp laceration ICD Code: S01.01XA - Laceration without foreign body of scalp, initial encounter Status: Acute (5) Chronic schizophrenia ICD Code: F20.9 - Schizophrenia, unspecified Status: Chronic (6) Bipolar disorder ICD Code: F31.9 - Bipolar disorder, unspecified Status: Chronic (7) Dyslipidemia ICD Code: E78.5 - Hyperlipidemia, unspecified Status: Chronic Assessment and Plan 57-year-old female with history of bipolar disorder, schizophrenia, depression, asthma, hyperlipidemia, presents with syncope and fall. Syncope with fall: Unclear etiology, suspect multifactorial with dehydration, pneumonia, in combination with alcohol intoxication. -EtOH level 92 upon arrival -Head CT and C-spine CT reviewed, no acute findings -CXR and CTA showed LLL infiltrate, no PE, given antibiotics as below -Monitor on telemetry, no acute arrhythmia -PT consulted, no PT needed at discharge -Check orthostatic vital signs -Given IVF hydration -Echocardiogram completed, awaiting results Scalp laceration: Acute, secondary to fall as above -Status post laceration repair with gina in the ER -Instructed patient on local wound care, okay to shower, have gina removed within 10-14 days Community-acquired pneumonia: CXR and chest CTA showing LLL infiltrate -Started on IV Levaquin, plan to discharge on p.o. Levaquin Schizophrenia/bipolar disorder/depression: Chronic -Continue patient's home medication including Paxil, Depakote, trazodone -Depakote level low, patient informed of results, reports compliance with Depakote, recommended to check her medications for expiration dates and confirm Depakote dosing, repeat level in 1 week and follow-up with PCP Dr. Ramos, patient verbalized understanding Hyperlipidemia: Chronic -Continue statin Hyperkalemia: Potassium 3.3 -Given replacement in the ED Transaminitis: LFTs mildly elevated, no GI complaints -Possibly secondary to alcohol use vs psychiatric medications -EMR reviewed, Hepatitis panel negative in 2008, 2012, 2017 -Recommend to repeat LFTs as outpatient in 1 week and follow-up with PCP Alcohol Use: with +intoxication upon arrival, Etoh level 92 -Counseled on cessation -No signs of withdrawal DVT Prophylaxis: teds/SCDs; avoid chemoprophylaxis with recent head injury Discharge Planning 1120hrs: Likely discharge later today if echocardiogram unremarkable. 1340hrs: Echocardiogram resulted, EF 50-55%. Stable for discharge. Discussed with Ruby MENJIVAR. Discharge patient to home Condition on discharge: Stable Regular Diet as tolerated Ad Kami activity Rx written: Levofloxacin 750mg daily x5days, lactinex bid x5days Follow-up with primary care physician Dr. Vazquez Ramos in 2-3 days Problem Qualifiers (1) Syncope: Qualified Codes: R55 - Syncope and collapse (2) Head injury: Qualified Codes: S09.90XA - Unspecified injury of head, initial encounter (3) Pneumonia: Qualified Codes: J18.1 - Lobar pneumonia, unspecified organism (4) Scalp laceration: Qualified Codes: S01.01XA - Laceration without foreign body of scalp, initial encounter Kaitlynn Yoder PA-C Sep 07, 2017 10:52
--- NOTE | 2017-09-07 12:02 | ECHRPT ---
Indication: syncope CONCLUSIONS Normal left ventricular size. Wall thickness is normal. The left ventricular systolic function is low normal with an estimated ejection fraction in the rang e of 50- 55%. Mitral annular calcification is present. Trace mitral valve regurgitation. BP: / HR: Rhythm: MEASUREMENTS (Male / Female) Normal Values Technical Quality: 2D ECHO LV Diastolic Diameter PLAX 4.7 cm 4.2 - 5.9 / 3.9 - 5.3 cm LV Systolic Diameter PLAX 3.8 cm IVS Diastolic Thickness 0.9 cm 0.6 - 1.0 / 0.6 - 0.9 cm LVPW Diastolic Thickness 0.6 cm 0.6 - 1.0 / 0.6 - 0.9 cm LV Relative Wall Thickness 0.3 RV Internal Dim ED PLAX 1.7 cm LA Systolic Diameter LX 3.0 cm 3.0 - 4.0 / 2.7 - 3.8 cm M-MODE Aortic Root Diameter MM 3.0 cm AV Cusp Separation MM 2.0 cm DOPPLER Mitral E Point Velocity 55.9 cm/s Mitral A Point Velocity 78.8 cm/s Mitral E to A Ratio 0.7 TR Peak Velocity 116.7 cm/s TR Peak Gradient 5.4 mmHg Right Atrial Pressure 5.0 mmHg Pulmonary Artery Systolic Pressu 10.4 mmHg Right Ventricular Systolic Press 10.4 mmHg FINDINGS LEFT VENTRICLE Normal left ventricular size. Wall thickness is normal. The left ventricular systolic function is low normal with an estimated ejection fraction in the rang e of 50- 55%. RIGHT VENTRICLE Normal right ventricular size and systolic function. LEFT ATRIUM The left atrial size is normal. RIGHT ATRIUM The right atrial size is normal. ATRIAL SEPTUM Normal atrial septal thickness without atrial level shunting by limited color doppler interrogation. AORTA The aortic root and proximal ascending aorta are normal in size on limited imaging. MITRAL VALVE Mitral annular calcification is present. Trace mitral valve regurgitation. AORTIC VALVE Trileaflet aortic valve. No aortic valve stenosis or regurgitation. TRICUSPID VALVE Structurally normal tricuspid valve. No tricuspid valve stenosis or regurgitation. PULMONARY VALVE No pulmonary valve regurgitation or stenosis. VESSELS The inferior vena cava is normal in size. PERICARDIUM No pericardial effusion. Garrett Davis MD, FACC (Electronically Signed) Final Date:07 September 2017 12:01
== END 2017-09-07 15:11 | disposition home or self-care (01) ==
LOC: NEPE 01:14 → NEDA 04:39 → NEPFCDU 07:23
PROVIDERS: ADMIT Family Medicine; ATTEND Family Medicine
DX: R55 Syncope and collapse (principal); J18.1 Lobar pneumonia, unspecified organism; F10.129 Alcohol abuse with intoxication, unspecified; S01.01XA Laceration without foreign body of scalp, initial encounter; E87.6 Hypokalemia; E87.5 Hyperkalemia; R74.0 Nonspecific elevation of levels of transaminase and lactic acid dehydrogenase [LDH]; E78.5 Hyperlipidemia, unspecified; F20.9 Schizophrenia, unspecified; F31.9 Bipolar disorder, unspecified; J45.909 Unspecified asthma, uncomplicated; M47.892 Other spondylosis, cervical region; F17.210 Nicotine dependence, cigarettes, uncomplicated; Y90.4 Blood alcohol level of 80-99 mg/100 ml; Z23 Encounter for immunization; Z79.899 Other long term (current) drug therapy; W19.XXXA Unspecified fall, initial encounter
CPT/HCPCS: 12004; 70450; 71045; 71275; 72125; 80053; 80164; 80307; 82550; 82552; 84484; 85025; 85610; 85730; 87040; 90471; 90714; 93005; 93306; 96365; 96367; 96375; 97161; 99285; G0378; J0690; J1956; J2270; Q9967